=== PATIENT | female | born 1975 ===

== ENCOUNTER 2017-09-06 02:20 | Outpatient (CLI) | payer MEDICAID | END 2017-09-06 23:59 | disposition home or self-care (01) | LOC: DIABETIC 02:20 | PROVIDERS: ATTEND Surgery | DX: Z13.1 Encounter for screening for diabetes mellitus (principal) ==

== ENCOUNTER 2017-11-04 05:01 | Outpatient (CLI) | payer MEDICAID | END 2017-11-04 23:59 | disposition home or self-care (01) | LOC: DIABETIC 05:01 | PROVIDERS: ATTEND Surgery | DX: E66.01 Morbid (severe) obesity due to excess calories (principal) | CPT/HCPCS: 97802 ==

== ENCOUNTER 2017-12-06 01:28 | Outpatient (CLI) | payer MEDICAID | END 2017-12-06 23:59 | disposition home or self-care (01) | LOC: DIABETIC 01:28 | PROVIDERS: ATTEND Surgery | DX: E66.01 Morbid (severe) obesity due to excess calories (principal) | CPT/HCPCS: 97802 ==